=== PATIENT | male | born 1955 | race African-American/Black ===

== ENCOUNTER 2020-02-06 16:58 | Emergency (ER) | payer SELFPAY ==
[2020-02-06 17:02] VITALS: BP 170/83
[2020-02-06] MEDS ORDERED: KETOROLAC TROMETHAMINE 60 MG/2 ML SDV IM ONE (17:06)
--- NOTE | 2020-02-06 17:13 | ER Document Report ---
HPI - HPI Time Seen by Provider: 02/06/20 17:02 Notes: [age]-year-old male with a history of hypertension who did not take his blood pressure meds today presents emergency room for left lower dental pain that started 2 to 3 days ago. Patient states he tried Tylenol without relief. He is a smoker. Reports pain is 5 of 5 at its worse. Patient has not been seen by dentist or primary care provider for this issue. Worse when he is eating tougher foods. Denies fevers, chills, chest pain,palpitations, shortness of breath, dyspnea, nausea, vomiting, diarrhea, abdominal pain, hematuria,blurred vision, double vision, loss of vision, speech changes, LH, dizziness, syncope, headaches, wheezing, ST, URI, neck pain, weakness, bowel or bladder dysfunction, saddle anesthesia, numbness or tingling in bilateral upper or lower extremities equally, muscle paralysis, weakness in bilateral upper or lower extremities equally or rash. Denies IV drug use. MEDICATIONS: I agree with the patient medications as charted by the RN. ALLERGIES: I agree with the allergies as charted by the RN. PAST MEDICAL HISTORY/PAST SURGICAL HISTORY: Reviewed and agree as charted by RN. SOCIAL HISTORY: Reviewed and agree as charted by RN. FAMILY HISTORY: No significant familial comorbid conditions directly related to patient complaint EXAM: Reviewed vital signs as charted by RN. REVIEW OF SYSTEMS:reviewed vital signs by RN CONSTITUTIONAL : Denies fever, chills, or sweats. Denies recent illness. EENT: Reports dental pain. denies eye, ear, throat, or mouth pain or symptoms. Denies nasal or sinus congestion or discharge. Denies throat, tongue, or mouth swelling or difficulty swallowing. CARDIOVASCULAR: Denies chest pain. Denies palpitations or racing or irregular heart beat. Denies ankle edema. RESPIRATORY: Denies cough, cold, or chest congestion. Denies shortness of breath, difficulty breathing, or wheezing. GASTROINTESTINAL: Denies abdominal pain or distention. Denies nausea, vomiting, or diarrhea. Denies blood in vomitus, stools, or per rectum. Denies black, tarry stools. Denies constipation. GENITOURINARY: Denies difficulty urinating, painful urination, burning, frequency, blood in urine, or discharge. MUSCULOSKELETAL: Denies back or neck pain or stiffness. Denies joint pain or swelling. SKIN: Denies rash, lesions or sores. HEMATOLOGIC : Denies easy bruising or bleeding. LYMPHATIC: Denies swollen, enlarged glands. NEUROLOGICAL: Denies confusion or altered mental status. Denies passing out or loss of consciousness. Denies dizziness or lightheadedness. Denies headache. Denies weakness or paralysis or loss of use of either side. Denies problems wit h gait or speech. Denies sensory loss, numbness, or tingling. Denies seizures. PSYCHIATRIC: Denies anxiety or stress. Denies depression, suicidal ideation, or homicidal ideation. ALL OTHER SYSTEMS REVIEWED AND NEGATIVE. Dictation was performed using [employer] voice recognition software PHYSICAL EXAMINATION: GENERAL: Well-appearing, well-nourished and in no acute distress. HEAD: Atraumatic, normocephalic. EYES: Pupils equal round and reactive to light, extraocular movements intact, sclera anicteric, conjunctiva are normal. ENT: Nares patent, oropharynx clear without exudates. Moist mucous membranes. TM with effusion bilaterally, no erythema. TMs intact. #15, 14, 13 gingiva with swelling, erythema and induration. No drainage or open wounds. No fluctuance. No facial swelling. Poor oral dentition, left upper jaw with moderate dental caries, no definite swelling or effusion. no trismus noted. Uvula is midline NECK: Normal range of motion, supple without lymphadenopathy LUNGS: Breath sounds clear to auscultation bilaterally and equal. No wheezes rales or rhonchi. HEART: Regular rate and rhythm without murmurs ABDOMEN: Soft, nontender, nondistended abdomen. No guarding, no rebound. No masses appreciated. Musculoskeletal: Normal range of motion, no pitting or edema. No cyanosis. NEUROLOGICAL: Cranial nerves grossly intact. Normal speech, normal gait. Normal sensory, motor exams PSYCH: Normal mood, normal affect. SKIN: Warm, Dry, normal turgor, no rashes or lesions noted. Past Medical History - General Information source: Patient - Social History Smoking Status: Current Every Day Smoker Family History: Reviewed & Not Pertinent - Past Medical History Cardiac Medical History: Reports: Hx Hypertension Denies: Hx Coronary Artery Disease, Hx Heart Attack Pulmonary Medical History: Denies: Hx Asthma, Hx Bronchitis, Hx COPD, Hx Pneumonia Neurological Medical History: Denies: Hx Cerebrovascular Accident, Hx Seizures Musculoskeletal Medical History: Reports Hx Arthritis - Immunizations Hx Diphtheria, Pertussis, Tetanus Vaccination: Yes Vertical Provider Document - CONSTITUTIONAL Agree With Documented VS: Yes Exam Limitations: No Limitations General Appearance: WD/WN - INFECTION CONTROL TRAVEL OUTSIDE OF THE [place] IN LAST 30 DAYS: No Course - Re-evaluation Re-evalutation: 02/06/20 17:18 Afebrile vitals stable no distress. Nurses notes reviewed. Patient given 30 mg of Toradol IM. Discussed with patient that he does need to start taking oral antibiotics and to follow-up with a dentist within the next 2 to 3 days because he likely will need tooth extraction.Presentation is most consistent with likely an infected tooth. Airway is patent. Vitals within normal limits. Patient is able swallow without any difficulty. There is no significant facial swelling. No evidence of Ramos angina, apical abscess, or airway obstruction. Patient will be started on antibiotics. I've instructed to follow-up with dentistry as earliest ability for definitive management. after performing a Medical Screening Examination, I estimate there is LOW risk for a DEEP SPACE INFECTION (e.g., RAMOS'S ANGINA OR RETROPHARYNGEAL ABSCESS), MENINGITIS, INTRACRANIAL HEMORRHAGE, or AIRWAY COMPROMISE, thus I consider the discharge disposition reasonable. Also, there is no evidence or peritonitis, sepsis, or toxicity. I have reevaluated this patient multiple times and no significant life threatening changes are noted. The patient and I have discussed the diagnosis and risks, and we agree with discharging home with close follow-up with the understanding that symptoms and presentations can change. We also discussed returning to the Emergency Department immediately if new or worsening symptoms occur. We have discussed the symptoms which are most concerning (e.g., changing or worsening pain, trouble swallowing or breathing, neck stiffness or fever) that necessitate immediate return. - Vital Signs Vital signs: Temp Pulse Resp BP Pulse Ox 98.5 F 18 170/83 H 02/06/20 17:01 02/06/20 17:01 02/06/20 17:01 Discharge - Discharge Clinical Impression: Dental caries Condition: Stable Disposition: HOME, SELF-CARE Instructions: [facility], Clindamycin ([facility]), Toothache ([facility]), Dentist Additional Instructions: Dental Infection You have an infection, p of the gum around one of your teeth, which is probably decayed. If there is an abscess, it may drain on its own or it may need to be opened or lanced. Severe swelling or drainage around a tooth usually means a deep dental abscess which usually requires evaluation and treatment by a dentist or oral surgeon. Antibiotics may be prescribed while awaiting dental treatment. If you develop high fever with chills, worsening pain, or increasing swelling in the area, see a dentist or oral surgeon immediately or return to the Emergency Department immediately. You have been seen for dental pain. It is very important that you follow-up with a dentist for definitive care. Please return if you develop fever greater than 101, swelling in your face, vomiting, difficulty breathing or swallowing, or any other symptoms that are concerning to you. For pain you should take ibuprofen 600 mg every 6 hours as needed. Take antibiotics as directed. Avoid smoking. Salt water gargles. You were given a shot today of Toradol for your pain. Please alternate between Tylenol and ibuprofen for pain control. Follow a soft diet. It is advised that you see a dentist within this week. Return immediately for any new or worsening symptoms. Follow up with primary care provider, call tomorrow to make followup appointment. Prescriptions: Clindamycin HCl 300 mg PO Q6H #28 capsule Referrals: UGO CANCINO MD [ACTIVE STAFF] - Follow up as needed
== END 2020-02-06 17:18 | disposition home or self-care (01) ==
LOC: ER 16:58
DX: K02.9 Dental caries, unspecified (principal); F17.200 Nicotine dependence, unspecified, uncomplicated; I10 Essential (primary) hypertension
CPT/HCPCS: 99282; 96372; J1885

== ENCOUNTER 2020-06-05 14:13 | Emergency (ER) | payer MEDICARE ==
[2020-06-05] MEDS ORDERED: NALOXONE HCL INJ 2 MG/2 ML DISP.SYRIN IV ONE (14:25)
[2020-06-05] MEDS ORDERED: NALOXONE HCL INJ 2 MG/2 ML DISP.SYRIN ONE (14:25)
[2020-06-05 15:12] LABS: ABSOLUTE BASOPHILS # (AUTO) 0.1 10^3/uL (0.0-0.2); ABSOLUTE EOSINOPHILS # (AUTO) 0.2 10^3/uL (0.0-0.6); ABSOLUTE LYMPHOCYTES (AUTO) 2.5 10^3/uL (0.5-4.7); ABSOLUTE MONOCYTES (AUTO) 0.5 10^3/uL (0.1-1.4); ABSOLUTE NEUT (AUTO) 5.4 10^3/uL (1.7-8.2); BASOPHILS % (AUTO) 0.6 % (0-2); EOSINOPHILS % (AUTO) 2.2 % (0-6); HEMATOCRIT 36.8 % (37.9-51.0); HEMOGLOBIN 12.3 g/dL (13.5-17.0); LYMPHOCYTES % (AUTO) 28.9 % (13-45); MEAN CORPUSCULAR HEMOGLOBIN 30.3 pg (27.0-33.4); MEAN CORPUSCULAR HGB CONC 33.4 g/dL (32.0-36.0); MEAN CORPUSCULAR VOLUME 91 fl (80-97); MONOCYTES % (AUTO) 6.2 % (3-13); PLATELET COUNT 326 10^3/uL (150-450); RED BLOOD COUNT 4.07 10^6/uL (4.35-5.55); RED CELL DISTRIBUTION WIDTH 13.5 % (11.5-14.0); SEGMENTED NEUTROPHILS % (AUTO) 62.1 % (42-78); TOTAL CELLS COUNTED % (AUTO) 100 %; WHITE BLOOD COUNT 8.6 10^3/uL (4.0-10.5)
--- NOTE | 2020-06-05 15:24 | RADIOLOGY REPORT (SQ) ---
EXAM DESCRIPTION: CT HEAD WITHOUT IMAGES COMPLETED DATE/TIME: 06/05/2020 3:00 pm REASON FOR STUDY: ams COMPARISON: None. TECHNIQUE: Axial images acquired through the brain without intravenous contrast. Images reviewed wi th bone, brain and subdural windows. Images stored on PACS. All CT scanners at this facility use dose modulation, iterative reconstruction, and/or weight based d osing when appropriate to reduce radiation dose to as low as reasonably achievable (ALARA). [facility]: Dose Right [facility]: CareDose [facility]: Dose Right [facility]: Teradose 4D [facility]: PureSense RADIATION DOSE: CT Rad equipment meets quality standard of care and radiation dose reduction techniq ues were employed. CTDIvol: 53.2 mGy. DLP: 1070 mGy-cm. mGy. LIMITATIONS: None. FINDINGS: VENTRICLES: Normal size and contour. CEREBRUM: No masses. No hemorrhage. No midline shift. No evidence for acute infarction. Normal gra y/white matter differentiation. No areas of low density in the white matter. CEREBELLUM: No masses. No hemorrhage. No alteration of density. No evidence for acute infarction. EXTRAAXIAL SPACES: No fluid collections. No masses. ORBITS AND GLOBE: No intra- or extraconal masses. Normal contour of globe without masses. CALVARIUM: No fracture. PARANASAL SINUSES: No fluid or mucosal thickening. SOFT TISSUES: No mass or hematoma. OTHER: No other significant finding. IMPRESSION: NORMAL BRAIN CT WITHOUT CONTRAST. EVIDENCE OF ACUTE STROKE: NO. COMMENT: Quality ID # [id number]: Final reports with documentation of one or more dose reduction techniques (e.g., Automated exposure control, adjustment of the mA and/or kV according to patient size, use of iterative reconstruction technique) TECHNICAL DOCUMENTATION: JOB ID: [id number] 2010 [employer]- All Rights Reserved Reading location - IP/workstation name: [email or web address]
--- NOTE | 2020-06-05 15:30 | RADIOLOGY REPORT (SQ) ---
EXAM DESCRIPTION: CHEST SINGLE VIEW IMAGES COMPLETED DATE/TIME: 06/05/2020 3:07 pm REASON FOR STUDY: ams COMPARISON: None. NUMBER OF VIEWS: One view. TECHNIQUE: Single frontal radiographic view of the chest acquired. LIMITATIONS: None. FINDINGS: LUNGS AND PLEURA: No opacities, masses or pneumothorax. No pleural effusion. MEDIASTINUM AND HILAR STRUCTURES: No masses. Contour normal. HEART AND VASCULAR STRUCTURES: Heart normal in size. Normal vasculature. BONES: No acute findings. HARDWARE: None in the chest. OTHER: No other significant finding. IMPRESSION: NO SIGNIFICANT RADIOGRAPHIC FINDING IN THE CHEST. TECHNICAL DOCUMENTATION: JOB ID: [id number] 2010 [employer]- All Rights Reserved Reading location - IP/workstation name: [email or web address]
[2020-06-05 15:35] LABS: ALBUMIN 4.3 g/dL (3.5-5.0); ALKALINE PHOSPHATASE 91 U/L (38-126); ANION GAP 8 (5-19); ASPARTATE AMINO TRANSFERASE 19 U/L (17-59); BILIRUBIN,DIRECT 0.1 mg/dL (0.0-0.4); BILIRUBIN,TOTAL 0.4 mg/dL (0.2-1.3); BLOOD UREA NITROGEN 9 mg/dL (7-20); CALCIUM 9.5 mg/dL (8.4-10.2); CARBON DIOXIDE 25 mmol/L (22-30); CHLORIDE 107 mmol/L (98-107); GLUCOSE 179 mg/dL (75-110); TOTAL PROTEIN 7.1 g/dL (6.3-8.2)
[2020-06-05 15:37] LABS: ALCOHOL < 10 mg/dL (NONE DETECTED)
[2020-06-05 15:38] LABS: POTASSIUM 2.9 mmol/L (3.6-5.0)
[2020-06-05] MEDS ORDERED: NORMAL SALINE 1000 ML 1,000 ML IV ONE (15:47)
[2020-06-05] MEDS ORDERED: POTASSI CL 20 MEQ/50 ML RIDER 20 MEQ/50 ML RTUPB IV ONE (15:48)
[2020-06-05] MEDS ORDERED: POTASSIUM CHLORIDE 20 MEQ PACKET PO ONE (17:51)
--- NOTE | 2020-06-05 17:57 | ER Document Report ---
ED General - General Chief Complaint: Altered Mental Status Stated Complaint: AMS TRAVEL OUTSIDE OF THE [place] IN LAST 30 DAYS: No - HPI Notes: Chief complaint: Altered mental status History of present illness: 64-year-old male followed [facility] [place] [facility] with history of hypertension taking an unknown hypertensive medication was transported here via EMS for evaluation of altered mental status. The patient says he has been feeling intermittently lightheaded several times earlier in the week. 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 He went outside to get some fresh air and remembers sitting down on the bench and after that he is unclear as to what further may have happened. Bystanders reported that he appeared u narousable. They called EMS. EMS arrived and documented a normal fingerstick blood glucose. They found the patient unresponsive. He was diaphoretic. His pupils were small and nonreactive. His respirations appeared adequate and his pulse was strong. I transported him to the emergency department without further intervention other than placement of an IV line. Patient remained unresponsive on arrival here. - Related Data Allergies/Adverse Reactions: No Known Allergies Allergy (Verified 02/06/20 17:02) Past Medical History - General Information source: Patient, Emergency Med Personnel, [facility] Records - Social History Smoking Status: Unknown if Ever Smoked Frequency of alcohol use: None Drug Abuse: None, Other Lives with: Family Family History: Reviewed & Not Pertinent - Past Medical History Cardiac Medical History: Reports: Hx Hypertension Denies: Hx Coronary Artery Disease, Hx Heart Attack Pulmonary Medical History: Denies: Hx Asthma, Hx Bronchitis, Hx COPD, Hx Pneumonia Neurological Medical History: Denies: Hx Cerebrovascular Accident, Hx Seizures Endocrine Medical History: Denies: Hx Diabetes Mellitus Type 1, Hx Diabetes Mellitus Type 2 Malignancy Medical History: Reports None Musculoskeletal Medical History: Reports Hx Arthritis Past Surgical History: Reports: None - Immunizations Hx Diphtheria, Pertussis, Tetanus Vaccination: Yes Review of Systems - Review of Systems -: Yes ROS unobtainable due to patient's medical condition Physical Exam - Vital signs Vitals: Resp Pulse Ox 12 96 06/05/20 14:17 06/05/20 14:17 - Notes Notes: GENERAL: Elderly male who is deeply obtunded and diaphoretic. SKIN: Diaphoretic. Good turgor no rashes. HEAD: Normocephalic atraumatic. EYES: Gaze is conjugate. Pupils are equal pinpoint and nonreactive. EARS: CANALS AND TMS CLEAR. NOSE: CLEAR. MOUTH: Moist mucosa. Good dentition. No stridor or edema. No drooling. NECK: Supple. No masses or thyromegaly. No adenopathy. Carotids 2+ without bruits. No JVD. BACK: Symmetrical without tenderness. CHEST: Respirations unlabored. Breath sounds clear and symmetrical. HEART: Regular rhythm. No murmur gallop or rub. ABDOMEN: Soft nontender without masses, organomegaly or rebound. Bowel sounds normally active. No bruits. GENITALIA: Deferred. EXTREMITIES: No edema. No calf tenderness. Cap refill less than 1.5 seconds. Dorsalis pedis and posterior tibial pulses 3+ and symmetrical. NEUROLOGICAL: GCS 12. Patient arouses and opens eyes to loud verbal stimuli. Nonsense syllables initially. Squeezes fingers weakly in response to loud verbal stimuli. Moves all 4 extremities symmetrically in response to pain. Course - Re-evaluation Re-evalutation: 06/05/20 19:26 This man came in with altered mental status and upon work-up was found to have evidence of an accidental polydrug overdose with opiate and benzodiazepine. He denies any use of illicit drugs and says these were medicines that he had on hand at home that he had taken to try to alleviate arthritic symptoms. Head CT was normal. Only other significant finding was low potassium 2.9. We note that he takes a diuretic for his blood pressure. I have given him some oral potassium replacement and some IV potassium. Vital signs are stable. We will recheck his potassium level prior to discharge and be sure that he can ambulate without assistance. Patient's adult daughter came in and he was very vehement that he did not want us to discuss his overdose situation with her. I have asked [facility] service to consult for this gentleman. Potassium is pending at this time. - Vital Signs Vital signs: Temp Pulse Resp BP Pulse Ox 14 133/80 H 100 06/05/20 19:01 06/05/20 19:00 06/05/20 19:01 - Laboratory Result Diagrams: 06/05/20 14:35 06/05/20 14:35 Laboratory results interpreted by me: 06/05/20 06/05/20 06/05/20 14:35 14:35 14:40 RBC 4.07 L Hgb 12.3 L Hct 36.8 L Potassium 2.9 L* Glucose 179 H POC Glucose 185 H Urine Protein Urine Ascorbic Acid 06/05/20 17:51 RBC Hgb Hct Potassium Glucose POC Glucose Urine Protein 30 H Urine Ascorbic Acid 20 H - Diagnostic Test Radiology reviewed: Image reviewed, Reports reviewed Radiology results interpreted by me: 06/05/20 18:01 Chest X-Ray 06/05/20 14:47 IMPRESSION: NO SIGNIFICANT RADIOGRAPHIC FINDING IN THE CHEST. Head CT 06/05/20 14:47 IMPRESSION: NORMAL BRAIN CT WITHOUT CONTRAST. EVIDENCE OF ACUTE STROKE: NO. - EKG Interpretation by Me Additional EKG results interpreted by me: 06/05/20 18:02 Twelve-lead EKG reviewed by me contemporaneously: 1428 hrs. Indication for study: Altered mental status Rhythm: Sinus bradycardia Rate: 51 Intervals: Intervals normal QRS axis: -[address]/T wave changes: Nonspecific T wave abnormalities Comparison with prior tracing: None Interpretation: Sinus bradycardia nonspecific T wave abnormalities Discharge - Discharge Clinical Impression: Accidental opiate overdose, Hypokalemia, Essential hypertension Condition: Stable Disposition: HOME, SELF-CARE Additional Instructions: Overdose You have taken more medication than you should have. After your evaluation and care, it is felt that your overdose is not likely to be harmful or of any significant consequences to you and you are being discharged. In the future, you should be careful not to take more medications than what is prescribed for you. Although your overdose does not seem to be of any danger to you at this time, if you develop any unusual or unexpected symptoms after your discharge, you should return to the Emergency Department immediately for re-evaluation. Hypokalemia You have an abnormally decreased level of serum potassium. Hypokalemia may cause weakness, fatigue, or heart rhythm abnormalities. Sometimes there are no symptoms at all. Usually, low serum potassium is due to taking diuretics (water pills). It can also be due to excessive vomiting or diarrhea. If no obvious cause is evident, further evaluation will be necessary. Treatment is usually oral potassium supplements. Take these exactly as prescribed. You may also want to select foods which are naturally high in potassium -- fruits (such as bananas, cantaloupe, grapes, oranges, prunes, tomatoes), fresh vegetables (potatoes, spinach, beans, peas), orange or tomato juice, tomato pasta sauce, milk, fish (halibut, tuna, salmon, emma) A follow-up blood test is usually performed to assure that the potassium is returning to normal. Call the physician if you suffer severe weakness, muscle twitching or cramping, palpitations (pounding or irregular heartbeat), or any other new or alarming symptoms. Take prescribed potassium replacement medication as instructed. Avoid excessive use of medications for pain or sedation. Follow-up with your doctor and have your potassium checked within the next 2 to 3 days. Return here as needed for new or worsening symptoms Prescriptions: Potassium Chloride 20 meq PO BID 7 Days #14 [email or web address]
[2020-06-05 18:10] LABS: APPEARANCE,URINE CLEAR; BILIRUBIN,URINE NEGATIVE (NEGATIVE); COLOR,URINE YELLOW; GLUCOSE, URINE NEGATIVE (NEGATIVE); KETONES,URINE NEGATIVE (NEGATIVE); LEUKOCYTE ESTERASE,URINE NEGATIVE (NEGATIVE); NITRITE,URINE NEGATIVE (NEGATIVE); PROTEIN,URINE 30 mg/dL (NEGATIVE); URINE SPECIFIC GRAVITY 1.013; UROBILINOGEN,URINE NEGATIVE mg/dL (<2.0)
[2020-06-05 18:34] LABS: URINE AMPHETAMINES SCREEN NEGATIVE; URINE BARBITURATES SCREEN NEGATIVE; URINE BENZODIAZEPINES SCREEN UNCONFIRMED POSITIVE; URINE COCAINE SCREEN NEGATIVE; URINE MARIJUANA (THC) SCREEN NEGATIVE; URINE METHADONE SCREEN NEGATIVE; URINE PHENCYCLIDINE SCREEN NEGATIVE
[2020-06-05 20:25] LABS: BLOOD UREA NITROGEN 9 mg/dL (7-20); CALCIUM 9.6 mg/dL (8.4-10.2); GLUCOSE 101 mg/dL (75-110)
[2020-06-05 20:30] LABS: ANION GAP 6 (5-19); CARBON DIOXIDE 27 mmol/L (22-30); CHLORIDE 108 mmol/L (98-107)
[2020-06-05 20:34] LABS: POTASSIUM 4.1 mmol/L (3.6-5.0)
[2020-06-05 20:46] VITALS: BP 147/88
--- NOTE | 2020-06-05 20:57 | PSYCHOLOGICAL NOTE ---
Psych Note - Psych Note Date seen by psych provider: 06/05/20 Time seen by psych provider: 19:25 Psych Note: Reason for Consult: altered mental status Consent permissions: None [id number] Patient is a 64 year old male admitted to the ED via EMS for an altered mental status. Patient reports he was at work (he works as a [employer]) and started feeling a little warm and went to sit on a bench and he supposes someone saw that he did not look good and called 9-11. Patient reports he takes blood pressure medication and states he has bad arthritis and states he guesses he took a couple of narcotics for his pain. When asked about narcotics, he reports, I dont know. Hydrocodone. Patient's toxicology was positive for opiates and benzos. Patient denies suicidal ideation, plan, and intent. Patient denies homicidal ideation, plan, and intent. He states he is a who served 6 years in the [employer]/ [employer] and used to be prescribed Lorazepam for anxiety. He states when he got out of the , he was dealing with some depression and anxiety. Patient denies any history of inpatient hospitalizations. Collateral: [id number]; There were concerns of substance use due to positive toxicology report, patient not allowing staff to provide daughter with i nformation, and asking if his work was going to have access to his medical record. Daughter was called, only to obtain information, and assess if any safety concerns were present. Called patients daughter to obtain collateral information. Patients daughter was outside as patient did not provide consent to share information with her. Daughter, Sarah, reported she received a call from a family member that he was in the ED because he passed out. Daughter reports no known medical history of mental health history. Daughter reports no known history of inpatient hospitalizations or suicide attempts. Daughter reports no known substance abuse or alcoholism. She reports cigarette use. Daughter states patient lives alone and she has no safety concerns for patient. She denies patient being a safety concern to himself or others. Patient was alert and oriented to self, person, place, and time. He was somewhat oriented to situation, as he states he supposes EMS was called because he did not look well. Mood was euphoric with congruent affect. He denies current suicidal and homicidal ideations, plans, or intent. Patient did not appear to be responding to internal stimuli as evidenced by fair eye contact and answering questions appropriately when addressed. Thought processes are linear and organized. Conversational speech was within normal limits for rate, tone and prosody. Intellectual abilities are estimated to be average. Insight, judgment and impulse control were fair as evidenced by asking for a potassium prescription and stating he was going to follow up with PCP. Patient engages appropriately. He demonstrates future forward goal oriented thinking as he discussed wanting to go back to work and wanting potassium to take at home and follow up with primary doctor. Clinical Presentation: altered mental status IVC Criteria per [place] GS 122C Dangerous to others Within the relevant past the individual No has inflicted or attempted to inflict or threatened to inflict serious bodily harm on another AND No that there is a reasonable probability that this conduct will be repeated. OR No has acted in such a way as to create a substantial risk of serious bodily harm to another AND No that there is a reasonable probability that this conduct will be repeated. OR No has engaged in extreme destruction of property AND NO that there is a reasonable probability that this conduct will be repeated. Previous episodes of dangerousness to others, when applicable, may be considered when determining reasonable probability of future dangerous conduct. Clear, cogent, and convincing evidence that an individual has committed a homicide in the relevant past is prima facie evidence of dangerousness to others. Dangerous to self Within the relevant past the individual has done any of the following: acted in such a way as to show ALL of the following: No The individual would be unable without care, supervision, and the continued assistance of others not otherwise available, to exercise self- control, judgment, and discretion in the conduct of the individual's daily responsibilities and social relations or to satisfy the individual's need for nourishment, personal or medical care, [facility], or self-protection and safety. AND No There is a reasonable probability of the individual suffering serious physical debilitation within the near future unless adequate treatment is given. A showing of behavior that is grossly irrational, of actions that the individual is unable to control, of behavior that is grossly inappropriate to the s ituation, or of other evidence of severely impaired insight and judgment shall create a prima facie inference that the individual is unable to care for himself or herself. OR No has attempted suicide or threatened suicide No, patient states he took pain medication and has been taking blood pressure medication. He denies suicidal ideation, plan, and intent. Reports no history of suicidal ideations or attempts. AND No that there is a reasonable probability of suicide unless adequate treatment is given OR No has mutilated himself or herself or attempted to mutilate himself or herself AND No that there is a reasonable probability of serious self-mutilation unless adequate treatment is given. NOTE: Previous episodes of dangerousness to self, when applicable, may be considered when determining reasonable probability of physical debilitation, suicide, or self-mutilation. Impression\plan: Patient is cleared from psychiatric services. He was admitted to the ED for an altered mental status and concern for overdose. He denies suicidal ideation, plan, and intent. He states he took narcotics for pain and was positive for opiates and benzos, his daughter (from collateral call) does not report any known mental health history or concerns for his safety. There were concerns of substance use due to positive toxicology report, patient not allowing staff to provide daughter with information, and asking if his work was going to have access to his medical record. Daughter was called, only to obtain information, and assess if any safety concerns were present. She reported no known history of mental health and denied having and concerns for patient being a danger to self or others. Patient demonstrates future forward goal oriented thinking as he talks about going back to work. He also requested potassium prescription and discussed plans to follow up with PCP as he has been on this in the past. Due to his reported history of depression and anxiety when he discharged from the , patient was given community referrals for outpatient services if he wish to pursue therapy or medication management. Patient was provided community mental health resource sheet for outpatient services and mobile crisis, [facility] and [facility]. He is recommended to not use illegal substances. Dr. Lam was consulted to care management of this patient; attending physicians in agreement with recommendations and disposition.
--- NOTE | 2020-06-06 08:10 | EKG REPORT ---
SEVERITY:- ABNORMAL ECG - SINUS RHYTHM LEFT VENTRICULAR HYPERTROPHY BORDERLINE T ABNORMALITIES, INFERIOR LEADS : Confirmed by: Bijal Bonner 06-Jun-2020 08:09:50
== END 2020-06-05 21:01 | disposition home or self-care (01) ==
LOC: ER 14:13
DX: R41.82 Altered mental status, unspecified (principal); T40.601A Poisoning by unspecified narcotics, accidental (unintentional), initial encounter; T42.4X1A Poisoning by benzodiazepines, accidental (unintentional), initial encounter; R42 Dizziness and giddiness; E87.6 Hypokalemia; I10 Essential (primary) hypertension
CPT/HCPCS: 93005; 99285; 96361; 96375; 96365; 96366; 36415; 82962; 80307 ×2; 83735; 85025; 80053; 81001; 84484; 71045; 70450; 93010; J2310; J3480; J7030; J3490